=== PATIENT | male | born 1970 | race African-American/Black ===

== ENCOUNTER 2018-05-24 12:11 | Inpatient (IN) ==
[2018-05-24] MEDS ORDERED: ONDANSETRON 4 MG/2 ML VIAL IV STA ×2 (14:00→16:13)
[2018-05-24] MEDS ORDERED: SODIUM CHLORIDE 0.9% 2,000 ML IV STA (14:00)
[2018-05-24] MEDS ORDERED: PANTOPRAZOLE 40 MG VIAL IV STA (14:00)
[2018-05-24 14:25] LABS: Apearance,Urine Slightly Hazy (Clear); Bilirubin,Urine Negative (Negative); Blood, Urine Negative (Negative); Glucose,Urine (UA) Negative (Negative); Ketones,Urine Negative (Negative); Mucus,Urine Many /LPF (Occasional); Nitrite,Urine Negative (Negative); Protein,Urine 100 MG/DL; RBC,Urine 16 /HPF (0-4); Squamous Epithelial Cell,Urine Occasional /HPF (0-10); WBC,Urine 1 /HPF (0-6)
[2018-05-24 14:26] LABS: Basophils % 0.2 % (0.0-0.8); Eosinophils % 0.2 % (0.00-10.9); Hemoglobin 14.5 GM/DL (14.0-18.0); Immature Granulocytes % 0.2 %; Immature Granulocytes Absolute 0.01 #; Lymphocytes # 0.7 10*3/uL (1.4-4.0); Lymphocytes % 17.9 % (21.2-54.2); Mean Corpuscular Hemoglobin 30 PG (27-34); Mean Platelet Volume 12.2 FL (9.6-12.0); Monocytes # 0.3 10*3/uL (0.11-0.8); Monocytes % 8.2 % (1.7-12.7); Neutrophils # 2.9 10*3/uL (1.4-7.4); Neutrophils % 73.3 % (38.7-73.9); Platelet Count 155 T/CUMM (130-400); Red Blood Count 4.89 MC/CUMM (3.8-5.5); Red Cell Distribution Width 14.6 % (9.3-17.3); Urine Color Dark yellow (Yellow)
[2018-05-24 14:57] LABS: Albumin 3.8 G/DL (3.4-5.0); Bilirubin,Total 0.4 MG/DL (0.2-1.0); Calcium 9.3 MG/DL (8.5-10.1); Osmolality,Calculated 276.4 MOS/KG (273-304); Potassium 3.4 MMOL/L (3.5-5.1); Total Protein 7.6 G/DL (6.4-8.3)
[2018-05-24] MEDS ORDERED: amLODIPine 5 MG TABLET PO STA (15:52)
[2018-05-24] MEDS ORDERED: amLODIPine 10 MG TABLET ONE (15:53)
[2018-05-24] MEDS ORDERED: HYDROmorphone 2 MG/1 ML VIAL IV STA (16:13)
[2018-05-24] MEDS ORDERED: ONDANSETRON 4 MG/2 ML VIAL IV PRN (16:43)
[2018-05-24] MEDS ORDERED: hydrALAZINE 20 MG/1 ML VIAL IV PRN (16:48)
[2018-05-24] MEDS ORDERED: SODIUM CHLORIDE 0.9% 1,000 ML IV PRN (16:49)
[2018-05-24 18:29] LABS: Hematocrit 41.8 VOL% (42.0-52.0); Hemoglobin 13.5 GM/DL (14.0-18.0)
[2018-05-24] MEDS: HYDROmorphone 2 MG/1 ML VIAL IV PRN ×2 (18:30→21:31)
[2018-05-24] MEDS: SODIUM CHLORIDE 0.9% 1,000 ML IV SCH (18:32)
[2018-05-24] MEDS: HYDROXYCHLOROQUINE 200 MG TABLET PO SCH (21:29)
[2018-05-24] MEDS: METAXALONE 800 MG TABLET PO SCH (21:31)
[2018-05-25] MEDS: HYDROmorphone 2 MG/1 ML VIAL IV PRN ×5 (01:19→20:40)
[2018-05-25 02:03] LABS: Hematocrit 42.2 VOL% (42.0-52.0); Hemoglobin 13.9 GM/DL (14.0-18.0)
[2018-05-25] MEDS: SODIUM CHLORIDE 0.9% 1,000 ML IV SCH ×2 (05:04→17:02)
[2018-05-25 07:45] LABS: Hematocrit 44.1 VOL% (42.0-52.0); Hemoglobin 14.2 GM/DL (14.0-18.0)
[2018-05-25] MEDS: PANTOPRAZOLE 40 MG VIAL IV SCH ×3 (08:51→20:41)
[2018-05-25] MEDS: HYDROXYCHLOROQUINE 200 MG TABLET PO SCH ×2 (10:57→21:02)
[2018-05-25] MEDS: NEBIVOLOL 10 MG TABLET PO SCH (10:57)
[2018-05-25] MEDS: METAXALONE 800 MG TABLET PO SCH ×3 (10:57→21:02)
[2018-05-25 13:49] LABS: Hematocrit 42.9 VOL% (42.0-52.0); Hemoglobin 13.9 GM/DL (14.0-18.0)
[2018-05-26] MEDS: SODIUM CHLORIDE 0.9% 1,000 ML IV SCH (00:36)
[2018-05-26] MEDS: HYDROmorphone 2 MG/1 ML VIAL IV PRN (00:43)
[2018-05-26 06:46] LABS: Basophils % 0.4 % (0.0-0.8); Eosinophils # 0.1 10*3/uL (0.0-0.87); Eosinophils % 2.1 % (0.00-10.9); Hematocrit 44.3 VOL% (42.0-52.0); Hemoglobin 14.5 GM/DL (14.0-18.0); Immature Granulocytes % 0.2 %; Immature Granulocytes Absolute 0.01 #; Lymphocytes # 1.2 10*3/uL (1.4-4.0); Mean Corpuscular HGB Conc 32.7 GM/DL (32-36); Mean Corpuscular Hemoglobin 29 PG (27-34); Mean Corpuscular Volume 89.7 FL (87-102); Mean Platelet Volume 12.1 FL (9.6-12.0); Monocytes # 0.6 10*3/uL (0.11-0.8); Monocytes % 10.9 % (1.7-12.7); Neutrophils # 3.3 10*3/uL (1.4-7.4); Neutrophils % 63.4 % (38.7-73.9); Platelet Count 140 T/CUMM (130-400); Red Blood Count 4.94 MC/CUMM (3.8-5.5); Red Cell Distribution Width 14.4 % (9.3-17.3); White Blood Count 5.1 T/CUMM (4-12)
[2018-05-26 07:17] LABS: Albumin 3.1 G/DL (3.4-5.0); Bilirubin,Total 0.6 MG/DL (0.2-1.0); Calcium 8.3 MG/DL (8.5-10.1); Osmolality,Calculated 270.7 MOS/KG (273-304); Potassium 3.6 MMOL/L (3.5-5.1); Total Protein 6.7 G/DL (6.4-8.3)
[2018-05-26] MEDS ORDERED: ONDANSETRON 4 MG/2 ML VIAL ONE (08:52)
[2018-05-26] MEDS ORDERED: LIDOCAINE 2% 5 ML VIAL ONE (09:00)
[2018-05-26] MEDS ORDERED: PROPOFOL 200 MG/20 ML VIAL IV ONE (09:00)
[2018-05-26] MEDS: PANTOPRAZOLE 40 MG VIAL IV SCH (10:09)
[2018-05-26] MEDS ORDERED: fentaNYL 100 MCG/2 ML VIAL ONE (10:27)
[2018-05-26] MEDS: METAXALONE 800 MG TABLET PO SCH ×2 (10:33→16:07)
[2018-05-26] MEDS: NEBIVOLOL 10 MG TABLET PO SCH (10:33)
[2018-05-26] MEDS: HYDROXYCHLOROQUINE 200 MG TABLET PO SCH (10:33)
[2018-05-26 12:05] VITALS: BP 162/99
[2018-05-27] MEDS ORDERED: PANTOPRAZOLE 40 MG TABLET PO SCH (09:00)
== END 2018-05-26 16:30 | disposition home or self-care (01) | DRG 379 ==
LOC: N.ED 12:11 → SUATTDRO 16:23 → N.EDINP 16:23 → N.4E 17:18 → N.2W 17:24 → N.4E 17:47
PROVIDERS: ADMIT Internal Medicine; ATTEND Internal Medicine